=== PATIENT | male | born 1965 | race Caucasian/White ===

== ENCOUNTER 2021-06-30 20:25 | Inpatient (IN) | payer MEDICAID, MEDICARE ==
[~2021-06-30] VITALS: Ht 188 cm; Wt 113.1 kg
[~2021-06-30 20:25] MED LIST: ALLO100T PO; AMLO10TA PO; LISI10TA27 PO; pantoprazole 40MG/NS 100ML BAG 100 ML IV ONE
[2021-06-30] MEDS ORDERED: fentaNYL/PF 50MCG/1 ML 2ML syringe IV ONE (20:50)
[2021-06-30 20:53] LABS: BASOPHILS # (AUTO) 0.2 X10'3 (0-0.2); BASOPHILS % (AUTO) 1.2 % (0-1); EOSINOPHILS # (AUTO) 0.6 X10'3 (0-0.9); EOSINOPHILS % (AUTO) 3.4 % (0-6); HEMATOCRIT 48.8 % (42.0-52.0); HEMOGLOBIN 16.9 g/dl (14.0-17.9); LYMPHOCYTES # (AUTO) 5.9 X10'3 (1.1-4.8); LYMPHOCYTES % (AUTO) 33.6 % (21-51); MEAN CORPUSCULAR HEMOGLOBIN 29.8 PG (27.0-31.0); MEAN CORPUSCULAR HGB CONC 34.6 g/dL (33.0-36.5); MEAN CORPUSCULAR VOLUME 86.1 FL (78-98); MEAN PLATELET VOLUME 7.8 FL (7.4-10.4); MONOCYTES # (AUTO) 1.2 X10'3 (0-0.9); MONOCYTES % (AUTO) 6.8 % (2-12); NEUTROPHILS # (AUTO) 9.7 X10'3 (1.8-7.7); PLATELET COUNT 276 X10'3 (140-440); RED BLOOD COUNT 5.67 X10'6 (4.70-6.10); RED CELL DISTRIBUTION WIDTH 13.9 % (11.5-14.5); WHITE BLOOD COUNT 17.5 X10'3 (4.5-11.0)
[2021-06-30 21:03] LABS: ABG BASE EXCESS -1.6 mmol/L (-2.0-2.0); ABG HCO3 27.1 mmol/L (22.0-26.0); ABG OXYGEN SATURATION 99.6 % (94-97); ABG PCO2 (T) 58.7 mmHg (35.0-48.0); ABG PO2 (T) 412.7 mmHg (75.0-100.0); ALLEN'S TEST POSITIVE; FCOHb 0.3 % (0.0-3.9); FMetHb 0.4 % (0.0-1.5); FO2Hb 98.9 % (94-97); PATIENT TEMPERATURE 36.1; PEEP 5 cm H2O; RESPIRATORY RATE 18 b/min; TIDAL VOLUME 400 mL; TOTAL HEMOGLOBIN 17.4 G/dl (14.0-18.0)
[2021-06-30 21:10] LABS: APTT 30 SECONDS (22-32)
[2021-06-30 21:12] LABS: GLUCOSE 161 MG/DL (70-104)
[2021-06-30 21:13] LABS: ALANINE AMINOTRANSFERASE 33 U/L (12-78); ALBUMIN 4.2 G/DL (3.4-5.0); ALKALINE PHOSPHATASE 136 IU/L (46-116); ANION GAP 10 (8-16); ASPARTATE AMINO TRANSFERASE 22 U/L (10-37); BILIRUBIN,TOTAL 0.8 MG/DL (0.1-1.0); BLOOD UREA NITROGEN 14 MG/DL (7-18); BUN/CREATININE RATIO 10.8 (5.4-32.0); CALCIUM 8.8 MG/DL (8.5-10.1); CHLORIDE 102 MMOL/L (99-107); POTASSIUM 3.5 MMOL/L (3.5-5.1); SODIUM 140 MMOL/L (135-145); TOTAL CARBON DIOXIDE 27.6 MMOL/L (24-32); TOTAL PROTEIN 8.6 G/DL (6.4-8.2); eGFR 57 ML/MIN
[2021-06-30] MEDS: propofol 1000mg/100ml bottle 100 ML IV PRN (21:19)
[2021-06-30] MEDS: labetalol injection 250 MG in normal saline 250ml IV soln 200 ML IV PRN (21:30)
--- NOTE | 2021-06-30 23:08 | NUR ---
Family and Dr. Degroot at bedside.
--- NOTE | 2021-06-30 23:08 | NUR ---
verbal order from Dr. Degroot to increase respiratory rate to 28 for transfer to unit. Respiratory paged.
[2021-07-01] VITALS (31 sets, daily range): BP systolic 105–138; BP diastolic 60–81
[2021-07-01] MEDS ORDERED: pantoprazole 40MG/NS 100ML BAG 100 ML IV ONE (00:04)
[2021-07-01 05:20] LABS: ABG BASE EXCESS 3.4 mmol/L (-2.0-2.0); ABG HCO3 26.5 mmol/L (22.0-26.0); ABG OXYGEN SATURATION 99.7 % (94-97); ABG PCO2 (T) 37.4 mmHg (35.0-48.0); ABG PO2 (T) 542.8 mmHg (75.0-100.0); FCOHb 0.3 % (0.0-3.9); FMetHb 0.4 % (0.0-1.5); PATIENT TEMPERATURE 38.1; PEEP 5 cm H2O; RESPIRATORY RATE 28 b/min; TIDAL VOLUME 400 mL; TOTAL HEMOGLOBIN 14.8 G/dl (14.0-18.0)
[2021-07-01 05:49] LABS: BASOPHILS # (AUTO) 0.1 X10'3 (0-0.2); BASOPHILS % (AUTO) 0.7 % (0-1); EOSINOPHILS # (AUTO) 0.2 X10'3 (0-0.9); EOSINOPHILS % (AUTO) 1.1 % (0-6); HEMATOCRIT 41.5 % (42.0-52.0); HEMOGLOBIN 14.1 g/dl (14.0-17.9); LYMPHOCYTES # (AUTO) 2.5 X10'3 (1.1-4.8); MEAN CORPUSCULAR HEMOGLOBIN 29.4 PG (27.0-31.0); MEAN CORPUSCULAR HGB CONC 34.1 g/dL (33.0-36.5); MEAN CORPUSCULAR VOLUME 86.2 FL (78-98); MEAN PLATELET VOLUME 7.9 FL (7.4-10.4); MONOCYTES # (AUTO) 1.3 X10'3 (0-0.9); NEUTROPHILS # (AUTO) 10.5 X10'3 (1.8-7.7); NEUTROPHILS % (AUTO) 72.2 % (42-75); PLATELET COUNT 229 X10'3 (140-440); RED BLOOD COUNT 4.81 X10'6 (4.70-6.10); RED CELL DISTRIBUTION WIDTH 13.8 % (11.5-14.5); WHITE BLOOD COUNT 14.5 X10'3 (4.5-11.0)
[2021-07-01 06:09] LABS: APTT 30 SECONDS (22-32)
[2021-07-01 06:13] LABS: TRIGLYCERIDES 314 MG/DL (20-135)
[2021-07-01 06:24] LABS: ALANINE AMINOTRANSFERASE 14 U/L (12-78); ALBUMIN 3.3 G/DL (3.4-5.0); ALBUMIN/GLOBULIN RATIO 1.2 (1.1-1.5); ALKALINE PHOSPHATASE 104 IU/L (46-116); ANION GAP 12 (8-16); ASPARTATE AMINO TRANSFERASE 19 U/L (10-37); BILIRUBIN,TOTAL 0.6 MG/DL (0.1-1.0); BLOOD UREA NITROGEN 19 MG/DL (7-18); BUN/CREATININE RATIO 10.3 (5.4-32.0); CALCIUM 8.6 MG/DL (8.5-10.1); CHLORIDE 104 MMOL/L (99-107); CREATININE 1.84 MG/DL (0.60-1.10); GLUCOSE 152 MG/DL (70-104); MAGNESIUM 1.8 MG/DL (1.5-2.4); PHOSPHORUS 4.6 MG/DL (2.3-4.5); POTASSIUM 3.8 MMOL/L (3.5-5.1); SODIUM 144 MMOL/L (135-145); TOTAL CARBON DIOXIDE 27.8 MMOL/L (24-32); TOTAL PROTEIN 6.1 G/DL (6.4-8.2); eGFR 38 ML/MIN
[2021-07-01] MEDS: sodium chloride 0.45% 1,000 ML IV SCH ×2 (10:03→20:19)
[2021-07-01] MEDS: labetalol injection 250 MG in normal saline 250ml IV soln 200 ML IV PRN ×2 (10:20→18:26)
--- NOTE | 2021-07-01 14:03 | NUR ---
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 Pt currently unresponsive per nursing staff and is intubated. Per RN, currently waiting on contact from family to decide on care plan. Will place TF recs below though do not anticipate initiating nutrition support at this time. Will continue to monitor. Recs: 1. IF TF within POC; Continuous TF using Vital High Protein at 85ml/hr goal to provide 2040ml volume, 2040kcals, 179g protein, 1705ml free water 2. IF TF; additional water flush 75ml Q4H 3. IF TF; routine bowel care 4. Daily wts Addendum: 07/01/21 at [address] Amended: Links added.
[2021-07-01] MEDS ORDERED: UNABLE TO OBTAIN (14:53)
[2021-07-01 15:58] LABS: HEMOGLOBIN A1C 6.2 % (4.5-6.2)
--- NOTE | 2021-07-01 18:30 | NUR ---
Patient in room ICU 2039. I have received report from Sera NOVAK and had the opportunity to ask questions and assume patient care.
[2021-07-02] VITALS (34 sets, daily range): BP systolic 119–211; BP diastolic 63–125
[2021-07-02 04:20] LABS: ABG BASE EXCESS -0.2 mmol/L (-2.0-2.0); ABG HCO3 27.5 mmol/L (22.0-26.0); ABG OXYGEN SATURATION 96.7 % (94-97); ABG PO2 (T) 96.1 mmHg (75.0-100.0); ALLEN'S TEST POSITIVE; FCOHb 0.7 % (0.0-3.9); FMetHb 0.3 % (0.0-1.5); FO2Hb 95.7 % (94-97); PATIENT TEMPERATURE 37.4; PEEP 5 cm H2O; RESPIRATORY RATE 12 b/min; TIDAL VOLUME 400 mL; TOTAL HEMOGLOBIN 13.7 G/dl (14.0-18.0)
[2021-07-02 05:28] LABS: BASOPHILS % (AUTO) 0.3 % (0-1); EOSINOPHILS # (AUTO) 0.1 X10'3 (0-0.9); HEMATOCRIT 36.8 % (42.0-52.0); HEMOGLOBIN 12.3 g/dl (14.0-17.9); LYMPHOCYTES # (AUTO) 1.4 X10'3 (1.1-4.8); LYMPHOCYTES % (AUTO) 9.9 % (21-51); MEAN CORPUSCULAR HEMOGLOBIN 29.2 PG (27.0-31.0); MEAN CORPUSCULAR HGB CONC 33.4 g/dL (33.0-36.5); MEAN CORPUSCULAR VOLUME 87.4 FL (78-98); MONOCYTES # (AUTO) 1.4 X10'3 (0-0.9); MONOCYTES % (AUTO) 10.2 % (2-12); NEUTROPHILS # (AUTO) 11.1 X10'3 (1.8-7.7); NEUTROPHILS % (AUTO) 78.6 % (42-75); PLATELET COUNT 176 X10'3 (140-440); RED BLOOD COUNT 4.21 X10'6 (4.70-6.10); RED CELL DISTRIBUTION WIDTH 13.4 % (11.5-14.5); WHITE BLOOD COUNT 14.2 X10'3 (4.5-11.0)
[2021-07-02 05:45] LABS: ALANINE AMINOTRANSFERASE 19 U/L (12-78); ALKALINE PHOSPHATASE 93 IU/L (46-116); ANION GAP 7 (8-16); ASPARTATE AMINO TRANSFERASE 11 U/L (10-37); BLOOD UREA NITROGEN 22 MG/DL (7-18); BUN/CREATININE RATIO 12.7 (5.4-32.0); CALCIUM 8.2 MG/DL (8.5-10.1); CHLORIDE 106 MMOL/L (99-107); CREATININE 1.73 MG/DL (0.60-1.10); GLUCOSE 179 MG/DL (70-104); MAGNESIUM 1.8 MG/DL (1.5-2.4); PHOSPHORUS 4.8 MG/DL (2.3-4.5); POTASSIUM 4.2 MMOL/L (3.5-5.1); SODIUM 142 MMOL/L (135-145); TOTAL CARBON DIOXIDE 28.8 MMOL/L (24-32); TOTAL PROTEIN 5.9 G/DL (6.4-8.2); eGFR 41 ML/MIN
--- NOTE | 2021-07-02 06:22 | NUR ---
[place] documentation: I have reviewed and agree with all interventions, assessments performed and documented by Lona NOVAK. [place] Medication Administration: For this medication-pass time frame, all medication were reviewed, dispensed, administered and documented per hospital policy by Lona NOVAK.
[2021-07-02] MEDS: pantoprazole 40MG/NS 100ML BAG 100 ML IV SCH (07:19)
[2021-07-02] MEDS: sodium chloride 0.45% 1,000 ML IV SCH ×2 (07:19→18:08)
[2021-07-02] MEDS: labetalol injection 250 MG in normal saline 250ml IV soln 200 ML IV PRN ×2 (09:25→16:26)
--- NOTE | 2021-07-02 12:00 | NUR ---
Donor network at bedside to assess patient, per case management spoke with family and they will not be coming in today, they want to wait a couple days before deciding on comfort care.
[2021-07-02] MEDS: acetaminophen 325mg tablet PO PRN ×2 (14:09→18:03)
--- NOTE | 2021-07-02 18:25 | NUR ---
Patient in room ICU 2039. I have received report from Marium NOVAK and had the opportunity to ask questions and assume patient care.
[2021-07-03] VITALS (35 sets, daily range): BP systolic 132–166; BP diastolic 69–81
[2021-07-03 03:21] LABS: BASOPHILS # (AUTO) 0.1 X10'3 (0-0.2); BASOPHILS % (AUTO) 0.5 % (0-1); EOSINOPHILS # (AUTO) 0.2 X10'3 (0-0.9); EOSINOPHILS % (AUTO) 1.1 % (0-6); HEMATOCRIT 35.8 % (42.0-52.0); HEMOGLOBIN 12.1 g/dl (14.0-17.9); LYMPHOCYTES # (AUTO) 1.7 X10'3 (1.1-4.8); LYMPHOCYTES % (AUTO) 11.9 % (21-51); MEAN CORPUSCULAR HEMOGLOBIN 29.7 PG (27.0-31.0); MEAN CORPUSCULAR HGB CONC 33.8 g/dL (33.0-36.5); MEAN PLATELET VOLUME 8.4 FL (7.4-10.4); MONOCYTES # (AUTO) 1.4 X10'3 (0-0.9); MONOCYTES % (AUTO) 9.8 % (2-12); NEUTROPHILS # (AUTO) 10.7 X10'3 (1.8-7.7); NEUTROPHILS % (AUTO) 76.7 % (42-75); PLATELET COUNT 157 X10'3 (140-440); RED BLOOD COUNT 4.07 X10'6 (4.70-6.10); RED CELL DISTRIBUTION WIDTH 13.2 % (11.5-14.5); WHITE BLOOD COUNT 13.9 X10'3 (4.5-11.0)
[2021-07-03 03:51] LABS: ALANINE AMINOTRANSFERASE 16 U/L (12-78); ALBUMIN 2.9 G/DL (3.4-5.0); ALBUMIN/GLOBULIN RATIO 0.9 (1.1-1.5); ALKALINE PHOSPHATASE 89 IU/L (46-116); ANION GAP 7 (8-16); ASPARTATE AMINO TRANSFERASE 10 U/L (10-37); BILIRUBIN,TOTAL 0.8 MG/DL (0.1-1.0); BLOOD UREA NITROGEN 17 MG/DL (7-18); BUN/CREATININE RATIO 11.9 (5.4-32.0); CALCIUM 8.7 MG/DL (8.5-10.1); CHLORIDE 107 MMOL/L (99-107); CREATININE 1.43 MG/DL (0.60-1.10); GLUCOSE 145 MG/DL (70-104); MAGNESIUM 2.1 MG/DL (1.5-2.4); PHOSPHORUS 3.4 MG/DL (2.3-4.5); SODIUM 142 MMOL/L (135-145); TOTAL CARBON DIOXIDE 27.9 MMOL/L (24-32); eGFR 51 ML/MIN
[2021-07-03] MEDS ORDERED: normal saline 500ml IV soln 500 ML IV ONE (05:20)
[2021-07-03 05:44] LABS: ABG BASE EXCESS -0.3 mmol/L (-2.0-2.0); ABG HCO3 25.4 mmol/L (22.0-26.0); ABG OXYGEN SATURATION 97.5 % (94-97); ABG PCO2 (T) 45.2 mmHg (35.0-48.0); ABG PO2 (T) 100.5 mmHg (75.0-100.0); FCOHb 0.3 % (0.0-3.9); FMetHb 0.4 % (0.0-1.5); FO2Hb 96.8 % (94-97); PATIENT TEMPERATURE 36.9; PEEP 5 cm H2O; RESPIRATORY RATE 16 b/min; TIDAL VOLUME 400 mL; TOTAL HEMOGLOBIN 12.8 G/dl (14.0-18.0)
[2021-07-03] MEDS: propofol 1000mg/100ml bottle 100 ML IV PRN (05:55)
[2021-07-03] MEDS: normal saline 1000ml 1,000 ML IV SCH ×2 (06:00→17:46)
--- NOTE | 2021-07-03 06:32 | NUR ---
Problems reprioritized. Patient report given, questions answered & plan of care reviewed with Ifeanyi NOVAK.
[2021-07-03] MEDS: pantoprazole 40MG/NS 100ML BAG 100 ML IV SCH ×2 (08:24→12:19)
--- NOTE | 2021-07-03 11:00 | NUR ---
TF Consult: Pt remains intubated pending family arrival w/ donor network contacted per critical care rounds. MAP 98 this AM during rounds. TF to start today given day 3 NPO per hollock maker; recs below. Pt receiving Propofol at 3ml/hr and to remain at 3ml/hr per RN this AM. No BM yet this admit. Will monitor for further nutrition support needs. Recs: 1. Continuous TF per hollock maker using Vital High Protein at 85ml/hr goal to provide 2040ml volume, 2040kcals, 179g protein, 1705ml free water 2. additional water flush 100ml Q4H 3. PALB Q /; daily wts 4. routine bowel care Addendum: 07/03/21 at [address] Amended: Links added.
[2021-07-03] MEDS: labetalol injection 250 MG in normal saline 250ml IV soln 200 ML IV PRN ×2 (12:08→21:12)
[2021-07-03] MEDS ORDERED: acetaminophen 325mg/10.15ml oral unit dose solution OGT PRN (15:35)
--- NOTE | 2021-07-03 18:05 | NUR ---
All of pt's belongings taken with brother, Andrew. Belongings include keys, shoe and pocket knife.
--- NOTE | 2021-07-03 18:30 | NUR ---
Patient in room ICU 2039. I have received report from Ifeanyi NOVAK and had the opportunity to ask questions and assume patient care.
[2021-07-04] VITALS (38 sets, daily range): BP systolic 127–157; BP diastolic 64–87
[2021-07-04 02:49] LABS: BASOPHILS # (AUTO) 0.1 X10'3 (0-0.2); BASOPHILS % (AUTO) 0.5 % (0-1); EOSINOPHILS # (AUTO) 0.3 X10'3 (0-0.9); EOSINOPHILS % (AUTO) 2.6 % (0-6); HEMATOCRIT 30.7 % (42.0-52.0); HEMOGLOBIN 10.3 g/dl (14.0-17.9); LYMPHOCYTES # (AUTO) 1.4 X10'3 (1.1-4.8); MEAN CORPUSCULAR HEMOGLOBIN 29.8 PG (27.0-31.0); MEAN CORPUSCULAR HGB CONC 33.7 g/dL (33.0-36.5); MEAN CORPUSCULAR VOLUME 88.5 FL (78-98); MEAN PLATELET VOLUME 8.8 FL (7.4-10.4); MONOCYTES % (AUTO) 8.2 % (2-12); NEUTROPHILS # (AUTO) 9.6 X10'3 (1.8-7.7); NEUTROPHILS % (AUTO) 77.7 % (42-75); PLATELET COUNT 168 X10'3 (140-440); RED BLOOD COUNT 3.47 X10'6 (4.70-6.10); RED CELL DISTRIBUTION WIDTH 13.4 % (11.5-14.5); WHITE BLOOD COUNT 12.4 X10'3 (4.5-11.0)
[2021-07-04 02:56] LABS: ALANINE AMINOTRANSFERASE 17 U/L (12-78); ALBUMIN 2.4 G/DL (3.4-5.0); ALBUMIN/GLOBULIN RATIO 0.6 (1.1-1.5); ALKALINE PHOSPHATASE 81 IU/L (46-116); ANION GAP 7 (8-16); ASPARTATE AMINO TRANSFERASE 9 U/L (10-37); BILIRUBIN,TOTAL 0.6 MG/DL (0.1-1.0); BLOOD UREA NITROGEN 14 MG/DL (7-18); BUN/CREATININE RATIO 12.3 (5.4-32.0); CALCIUM 8.9 MG/DL (8.5-10.1); CHLORIDE 108 MMOL/L (99-107); CREATININE 1.14 MG/DL (0.60-1.10); GLUCOSE 160 MG/DL (70-104); MAGNESIUM 2.1 MG/DL (1.5-2.4); POTASSIUM 4.1 MMOL/L (3.5-5.1); SODIUM 142 MMOL/L (135-145); TOTAL CARBON DIOXIDE 26.9 MMOL/L (24-32); TOTAL PROTEIN 6.5 G/DL (6.4-8.2); eGFR 66 ML/MIN
--- NOTE | 2021-07-04 04:30 | NUR ---
0400 residual check yielded 475ml. 300 mL returned and TF continued per protocol. Will continue to monitor.
[2021-07-04] MEDS: normal saline 1000ml 1,000 ML IV SCH ×2 (05:32→20:34)
[2021-07-04] MEDS: labetalol injection 250 MG in normal saline 250ml IV soln 200 ML IV PRN (05:49)
--- NOTE | 2021-07-04 06:32 | NUR ---
Problems reprioritized. Patient report given, questions answered & plan of care reviewed with Ifeanyi NOVAK.
[2021-07-04] MEDS: pantoprazole 40MG/NS 100ML BAG 100 ML IV SCH (07:46)
[2021-07-04 10:18] LABS: ABG BASE EXCESS -2.1 mmol/L (-2.0-2.0); ABG HCO3 24.7 mmol/L (22.0-26.0); ABG OXYGEN SATURATION 89.4 % (94-97); ABG PCO2 (T) 50.7 mmHg (35.0-48.0); ABG PO2 (T) 62.4 mmHg (75.0-100.0); ALLEN'S TEST POSITIVE; FCOHb 0.7 % (0.0-3.9); FMetHb 0.2 % (0.0-1.5); FO2Hb 88.6 % (94-97); PEEP 5 cm H2O; RESPIRATORY RATE 12 b/min; TIDAL VOLUME 400 mL; TOTAL HEMOGLOBIN 12.4 G/dl (14.0-18.0)
[2021-07-04] MEDS: niCARDipine-NS 40mg/200ml IVPB 200 ML IV SCH ×2 (12:36→17:40)
--- NOTE | 2021-07-04 18:28 | NUR ---
Patient in room ICU 2039. I have received report from Ifeanyi NOVAK and had the opportunity to ask questions and assume patient care.
--- NOTE | 2021-07-04 18:45 | NUR ---
Family is at bedside and Dr. Sanchez in to speak with them. PT's Krista does not want to make a decision tonight about end of life/comfort care measures. All questions were answered.
[2021-07-05] VITALS (32 sets, daily range): BP systolic 143–170; BP diastolic 70–85
[2021-07-05] MEDS: niCARDipine-NS 40mg/200ml IVPB 200 ML IV SCH ×5 (00:34→22:51)
[2021-07-05 02:15] LABS: BASOPHILS % (AUTO) 0.4 % (0-1); EOSINOPHILS # (AUTO) 0.2 X10'3 (0-0.9); EOSINOPHILS % (AUTO) 2.9 % (0-6); HEMATOCRIT 35.6 % (42.0-52.0); HEMOGLOBIN 11.8 g/dl (14.0-17.9); LYMPHOCYTES # (AUTO) 0.8 X10'3 (1.1-4.8); LYMPHOCYTES % (AUTO) 9.7 % (21-51); MEAN CORPUSCULAR HEMOGLOBIN 29.8 PG (27.0-31.0); MEAN CORPUSCULAR HGB CONC 33.3 g/dL (33.0-36.5); MEAN CORPUSCULAR VOLUME 89.4 FL (78-98); MEAN PLATELET VOLUME 8.2 FL (7.4-10.4); MONOCYTES # (AUTO) 0.8 X10'3 (0-0.9); MONOCYTES % (AUTO) 9.8 % (2-12); NEUTROPHILS # (AUTO) 6.5 X10'3 (1.8-7.7); NEUTROPHILS % (AUTO) 77.2 % (42-75); PLATELET COUNT 181 X10'3 (140-440); RED BLOOD COUNT 3.98 X10'6 (4.70-6.10); RED CELL DISTRIBUTION WIDTH 13.1 % (11.5-14.5); WHITE BLOOD COUNT 8.4 X10'3 (4.5-11.0)
[2021-07-05 02:33] LABS: ALANINE AMINOTRANSFERASE 10 U/L (12-78); ALBUMIN 2.2 G/DL (3.4-5.0); ALBUMIN/GLOBULIN RATIO 0.5 (1.1-1.5); ALKALINE PHOSPHATASE 77 IU/L (46-116); ANION GAP 6 (8-16); ASPARTATE AMINO TRANSFERASE 9 U/L (10-37); BILIRUBIN,TOTAL 0.4 MG/DL (0.1-1.0); BLOOD UREA NITROGEN 12 MG/DL (7-18); CALCIUM 9.3 MG/DL (8.5-10.1); CHLORIDE 111 MMOL/L (99-107); CREATININE 1.09 MG/DL (0.60-1.10); GLUCOSE 147 MG/DL (70-104); MAGNESIUM 2.3 MG/DL (1.5-2.4); PHOSPHORUS 4.3 MG/DL (2.3-4.5); POTASSIUM 4.2 MMOL/L (3.5-5.1); SODIUM 147 MMOL/L (135-145); TOTAL CARBON DIOXIDE 30.5 MMOL/L (24-32); TOTAL PROTEIN 6.6 G/DL (6.4-8.2); eGFR 70 ML/MIN
--- NOTE | 2021-07-05 06:00 | NUR ---
Patient in room ICU 2039. I have received report from Christine NOVAK and had the opportunity to ask questions and assume patient care.
--- NOTE | 2021-07-05 06:18 | NUR ---
Problems reprioritized. Patient report given, questions answered & plan of care reviewed with Jessica NOVAK.
[2021-07-05 07:34] LABS: ABG BASE EXCESS 1.7 mmol/L (-2.0-2.0); ABG OXYGEN SATURATION 91.6 % (94-97); ABG PCO2 (T) 71.7 mmHg (35.0-48.0); ABG PO2 (T) 62.8 mmHg (75.0-100.0); ALLEN'S TEST POSITIVE; FCOHb 0.2 % (0.0-3.9); FMetHb 0.3 % (0.0-1.5); FO2Hb 91.1 % (94-97); PATIENT TEMPERATURE 36.7; PEEP 40 cm H2O; RESPIRATORY RATE 12 b/min; TIDAL VOLUME 500 mL; TOTAL HEMOGLOBIN 13.4 G/dl (14.0-18.0)
[2021-07-05] MEDS: normal saline 1000ml 1,000 ML IV SCH ×4 (07:34→19:53)
[2021-07-05] MEDS: pantoprazole 40MG/NS 100ML BAG 100 ML IV SCH (07:59)
--- NOTE | 2021-07-05 18:31 | NUR ---
Problems reprioritized. Patient report given, questions answered & plan of care reviewed with Maile NOVAK.
[2021-07-06] VITALS (21 sets, daily range): BP systolic 144–189; BP diastolic 52–84
[2021-07-06] MEDS: niCARDipine-NS 40mg/200ml IVPB 200 ML IV SCH ×3 (01:44→08:05)
[2021-07-06 03:02] LABS: ABG BASE EXCESS 2.5 mmol/L (-2.0-2.0); ABG HCO3 29.3 mmol/L (22.0-26.0); ABG OXYGEN SATURATION 94.2 % (94-97); ABG PCO2 (T) 57.8 mmHg (35.0-48.0); ABG PO2 (T) 75.3 mmHg (75.0-100.0); FMetHb 0.3 % (0.0-1.5); FO2Hb 93.9 % (94-97); PATIENT TEMPERATURE 38.1; PEEP 5 cm H2O; RESPIRATORY RATE 16 b/min; TIDAL VOLUME 400 mL; TOTAL HEMOGLOBIN 13.1 G/dl (14.0-18.0)
[2021-07-06 06:11] LABS: BASOPHILS # (AUTO) 0.1 X10'3 (0-0.2); BASOPHILS % (AUTO) 0.6 % (0-1); EOSINOPHILS # (AUTO) 0.2 X10'3 (0-0.9); EOSINOPHILS % (AUTO) 2.4 % (0-6); HEMATOCRIT 34.7 % (42.0-52.0); HEMOGLOBIN 11.6 g/dl (14.0-17.9); LYMPHOCYTES # (AUTO) 0.9 X10'3 (1.1-4.8); LYMPHOCYTES % (AUTO) 9.5 % (21-51); MEAN CORPUSCULAR HEMOGLOBIN 29.5 PG (27.0-31.0); MEAN CORPUSCULAR HGB CONC 33.5 g/dL (33.0-36.5); MEAN CORPUSCULAR VOLUME 88.2 FL (78-98); MEAN PLATELET VOLUME 8.1 FL (7.4-10.4); MONOCYTES # (AUTO) 0.9 X10'3 (0-0.9); NEUTROPHILS # (AUTO) 7.2 X10'3 (1.8-7.7); NEUTROPHILS % (AUTO) 77.5 % (42-75); PLATELET COUNT 207 X10'3 (140-440); RED BLOOD COUNT 3.93 X10'6 (4.70-6.10); RED CELL DISTRIBUTION WIDTH 13.3 % (11.5-14.5); WHITE BLOOD COUNT 9.3 X10'3 (4.5-11.0)
[2021-07-06 06:23] LABS: ALANINE AMINOTRANSFERASE 13 U/L (12-78); ALBUMIN 2.2 G/DL (3.4-5.0); ALBUMIN/GLOBULIN RATIO 0.5 (1.1-1.5); ALKALINE PHOSPHATASE 88 IU/L (46-116); ANION GAP 8 (8-16); ASPARTATE AMINO TRANSFERASE 15 U/L (10-37); BILIRUBIN,TOTAL 0.4 MG/DL (0.1-1.0); BLOOD UREA NITROGEN 14 MG/DL (7-18); BUN/CREATININE RATIO 12.4 (5.4-32.0); CALCIUM 9.4 MG/DL (8.5-10.1); CHLORIDE 110 MMOL/L (99-107); CREATININE 1.13 MG/DL (0.60-1.10); GLUCOSE 193 MG/DL (70-104); MAGNESIUM 2.2 MG/DL (1.5-2.4); PHOSPHORUS 3.3 MG/DL (2.3-4.5); POTASSIUM 3.8 MMOL/L (3.5-5.1); SODIUM 148 MMOL/L (135-145); TOTAL CARBON DIOXIDE 30.5 MMOL/L (24-32); TOTAL PROTEIN 6.8 G/DL (6.4-8.2); eGFR 67 ML/MIN
[2021-07-06] MEDS: pantoprazole 40MG/NS 100ML BAG 100 ML IV SCH (08:03)
[2021-07-06] MEDS: normal saline 1000ml 1,000 ML IV SCH (08:06)
--- NOTE | 2021-07-06 12:39 | NUR ---
Reassessment: Pt remains intubated. TF tolerance has been fair versus poor documented with GRV range 250-550 since initiation of TF, though GRV down to 175 mL this morning. Per EMR TF only running at 50 mL/hr despite goal rate of 85 mL/hr, possibly r/t patient's tolerance to TF. Noted pt still with no BM since admit with hypoactive bowel sounds per EMR, possibly impacting TF tolerance. Pt not receiving any bowel care at this time. Will continue to follow closely and make recommendations as appropriate pending possible change in code status. Recommendations: 1. Continuous TF per insurance manager using Vital High Protein at 85ml/hr goal to provide 2040ml volume, 2040kcals, 179g protein, 1705ml free water 2. Additional 100 mL water flush Q4H; consider discontinuing NS at 85 mL/hr in view of increasing trend in serum Na, 148 MMOL/L today 3. PALB q Thursday/ 4. Daily scaled wts 5. Routine bowel care Addendum: 07/06/21 at [address] Amended: Links added.
[2021-07-06] MEDS ORDERED: morphine 10mg/0.5ml (conc. morphine) oral syringe PO PRN (14:10)
[2021-07-06] MEDS ORDERED: morphine 10mg/ml inj. IV PRN (14:10)
--- NOTE | 2021-07-06 15:30 | NUR ---
F/u: Noted pt has been made palliative/comfort care and TF diet has been discontinued. Will continue to follow per LOS. Recommendations: 1) Bowel care per comfort care measures Addendum: 07/06/21 at [address] Amended: Links added.
[2021-07-07] VITALS (9 sets, daily range): BP systolic 189–219; BP diastolic 83–99
--- NOTE | 2021-07-07 06:25 | NUR ---
Problems reprioritized. Patient report given, questions answered & plan of care reviewed with Fela NOVAK.
[2021-07-07] MEDS: LORazepam 2 mg/ml vial IV PRN ×2 (07:11→12:48)
[2021-07-07] MEDS ORDERED: glycopyrrolate 0.2mg/ml inj IV PRN (12:50)
--- NOTE | 2021-07-07 13:22 | NUR ---
RN IS TO DOCUMENT YES TO ALL APPLICABLE AREAS Pronouncement of : 1. Time Physician Notified: 2. Date of :1320 3. Time of : 1306 4. DNR/Withdraw life support documented: yes 5. Monitor strip has been placed on chart: yes 6. Assessment process is of one-minute duration and includes following criteria: a) Patient is unresponsive to all stimuli: yes b) Pupils fixed and non-reactive: yes c) Auscultation of precordium reveals absence of heart tones: yes d) Auscultation of lungs reveals absence of breath sounds: yes e) Absence of blood pressure / all vital signs: yes f) QRS complexes are not present on monitor / EKG strip: yes g) Pacer spikes without capture: N/A 4. Comments: Patient terminally extubated at 1244, Family at bedside, made aware of asystole.
== END 2021-07-07 17:52 | DRG 64 ==
LOC: ER 20:26 → ED HOLD 23:18 → ICU 2S 07-01 01:55
PROVIDERS: ADMIT Internal Medicine Critical Care Medicine; ATTEND Internal Medicine Critical Care Medicine
PROC: 5A1955Z Respiratory Ventilation, Greater than 96 Consecutive Hours (ICD-10-PCS; principal; 2021-06-30)
PROC: 0BH17EZ Insertion of Endotracheal Airway into Trachea, Via Natural or Artificial Opening (ICD-10-PCS; 2021-06-30)
DX: I61.3 Nontraumatic intracerebral hemorrhage in brain stem (principal); J96.01 Acute respiratory failure with hypoxia; N17.9 Acute kidney failure, unspecified; E87.2 Acidosis; I16.1 Hypertensive emergency; R40.20 Unspecified coma; Z20.822 Contact with and (suspected) exposure to COVID-19; F15.10 Other stimulant abuse, uncomplicated; Z66 Do not resuscitate; R00.1 Bradycardia, unspecified; R73.9 Hyperglycemia, unspecified; I10 Essential (primary) hypertension; M10.9 Gout, unspecified; Z51.5 Encounter for palliative care
CPT/HCPCS: 31500; 36415; 36600; 70450; 71045; 74018; 76700; 80053; 82803; 82948; 83036; 83605; 83735; 83880; 84100; 84134; 84145; 84478; 84484; 85018; 85025; 85610; 85730; 87040; 87070; 87081; 87088; 87635; 93005; 94002; 94003; 94760; 94799; 96365; 96375; 99285; C9113; C9803; G0378; J2060; J2274; J2704; J3010; J3490; J7030; J7040; J7050